=== PATIENT | male | born 1990 | race Caucasian/White ===

== ENCOUNTER 2018-06-24 00:13 | Emergency (ER) | payer OTHER ==
--- NOTE | 2018-06-24 00:24 | EDPHY ---
H & P Stated Complaint: severe pain/pressure behind L eye, DIETZ, SOB (out of albuterol) Time Seen by Provider: 06/24/18 00:21 HPI/ROS: HPI: This is a 28-year-old male who presents with Chief Complaint: severe pain/pressure behind L eye, DIETZ, SOB (out of albuterol) Location: Left oriental orthodox, left eye Quality: Pain Duration: 2-3 hours Signs and Symptoms: no fever, + nausea, no vomiting, no photophobia, no noise sensitivity, no neck stiffness, no ear pain, no tinnitus, no nasal congestion, no sinus pressure, no weakness, no radiation, no aura, no rash, no vision changes, no diplopia, no vision loss, no seizure activity Timing: Acute, constant Severity: 01/12 Context: Patient has a history of asthma, migraine headaches, presents with sudden onset 2-3 hours prior to arrival of left oriental orthodox and behind left eye 01/12 , severe, nonradiating pain. Patient reports that this is his worse headache of his life. He was sitting on the floor watching TV when the pain started to developed. He reports that the pain is so severe that he feels nauseous. Denies any vision changes, fever, vomiting. Reports this is not feel like a typical headache for him. Has yearly eye exams and does not wear corrective lenses/context. Denies any upper respiratory symptoms, sinus congestion, rhinorrhea. No recent trauma or injury. Modifying Factors: Took Aleve without pain relief Comment: ROS: A comprehensive 10 system review of systems is otherwise negative aside from elements mentioned in the history of present illness. MEDICAL/SURGICAL/SOCIAL HISTORY: Medical history: Asthma Surgical history: Denies Social history: Former smoker. Family history noncontributory. CONSTITUTIONAL: Moderate distress, adult physically fit white male, awake and alert, no obvious distress HEENT: Atraumatic and normocephalic, PERRL, EOMI. Nares patent; no rhinorrhea; no nasal mucosal edema. Tympanic membranes clear. Oropharynx clear, no exudate and moist pink mucosa. No temporal area pain with palpation. Airway patent. No lymphadenopathy. No meningismus. Cardiovascular: Normal S1/S2, regular rate, regular rhythm, without murmur rub or gallop. PULMONARY/CHEST: Symmetrical and nontender. Clear to auscultation bilaterally. Good air movement. No accessory muscle usage. ABDOMEN: Soft, nondistended, nontender, no rebound, no guarding, no peritoneal signs, no masses or organomegaly. No CVAT. EXTREMITIES: 2/2 pulses, strength 5/5, no deformities, no clubbing, no cyanosis or edema. NEUROLOGICAL: no focal neuro deficits. GCS 15. Cranial nerves 2-12 grossly intact. SKIN: Warm and dry, no erythema. no rash. Good capillary refill. Source: Patient Exam Limitations: No limitations - Personal History Current Tetanus/Diphtheria Vaccine: Yes Current Tetanus Diphtheria and Acellular Pertussis (TDAP): Yes - Medical/Surgical History Hx Asthma: Yes Hx Chronic Respiratory Disease: No Hx Diabetes: No Hx Cardiac Disease: No Hx Renal Disease: No Hx Cirrhosis: No Hx Alcoholism: No Hx HIV/AIDS: No Hx Splenectomy or Spleen Trauma: No Other PMH: asthma - Social History Smoking Status: Former smoker Constitutional: Initial Vital Signs Temperature (C) 36.5 C 06/24/18 00:16 Heart Rate 70 06/24/18 00:16 Respiratory Rate 20 06/24/18 00:16 Blood Pressure 146/89 H 06/24/18 00:16 O2 Sat (%) 95 06/24/18 00:16 O2 Delivery Mode Room Air Allergies/Adverse Reactions: No Known Allergies Allergy (Unverified 06/24/18 00:15) Home Medications: Medication Instructions Recorded Albuterol Sulfate [Proair Hfa] 1 - 2 puffs IH Q4 PRN #1 hfa.aer.ad 06/24/18 Albuterol [Proventil Inhaler HFA 06/24/18 (*)] Amoxicillin/Clavulanate Pot 875 mg PO BID #14 tab 06/24/18 [Augmentin 875 MG TAB (*)] Fluticasone Nasal [Flonase Nasal 1 sprays NASAL DAILY #1 mdi 06/24/18 [place] (RX)] Medical Decision Making - Diagnostics Imaging Results: Imaging Impressions Head CT 06/24/18 00:25 Impression: 1. No significant intracranial abnormality seen. 2. Nonspecific mild maxillary and ethmoid sinus disease. If symptoms worsen, additional imaging may be necessary. Preliminary report given to Emergency Department physician, Aida COOPER at 0057 hour, 06/24/2018. Final report concurs with initial preliminary interpretation. DR1 ED Course/Re-evaluation: Vital signs reviewed and show mildly elevated blood pressure. Head CT scan ordered as "worst headache of my life." IV access, laboratory studies obtained Given 1 L normal saline, IV Decadron 10 mg, IV Reglan 10 mg, and IV Benadryl 25 mg 0100: Reassessed patient who reports 75% improvement in pain and was sleeping soundly. 0102: Head CT scan overnight read shows no evidence of acute intracranial process, no hemorrhage, ventricular system is not dilated, no masses, moderate sinus mucosal thickening noted. 0108: BUN 33, creatinine 1.1 Suspect this is sinus disease versus ocular migraine. Given a prescription for Augmentin, Flonase and albuterol per patient request as out of his albuterol inhaler. Phenergan prepack given. This patient was seen under the supervision of my secondary supervising physician. I evaluated care for this patient with attending. Differential Diagnosis: Headache including but not limited to subarachnoid hemorrhage, migraine headache , tension headache and infectious causes such as meningitis, pharyngitis and sinusitis. - Data Points Laboratory Results: Laboratory Results 06/24/18 00:31 06/24/18 00:35 Medications Given: Discontinued Medications Amoxicillin/Clavulanate Potassium (Augmentin 875mg) 875 mg PO EDNOW ONE PRN Reason: Protocol Stop: 06/24/18 01:07 Last Admin: 06/24/18 01:13 Dose: 875 mg Dexamethasone (Decadron Injection) 10 mg IVP EDNOW ONE Stop: 06/24/18 00:26 Last Admin: 06/24/18 00:32 Dose: 10 mg Diphenhydramine HCl (Benadryl Injection) 25 mg IVP EDNOW ONE Stop: 06/24/18 00:26 Last Admin: 06/24/18 00:32 Dose: 25 mg Sodium Chloride (Ns) 1,000 mls @ 0 mls/hr IV ONCE ONE; Wide Open PRN Reason: Protocol Stop: 06/24/18 00:26 Last Admin: 06/24/18 00:33 Dose: 1,000 mls Metoclopramide HCl (Reglan Injection) 10 mg IVP EDNOW ONE Stop: 06/24/18 00:26 Last Admin: 06/24/18 00:33 Dose: 10 mg Promethazine HCl (Phenergan 25 Mg Prepack #4) 1 btl TAKEJINAE EDNOW ONE Stop: 06/24/18 01:07 Last Admin: 06/24/18 01:13 Dose: 1 btl Departure - Departure Disposition: Home, Routine, Self-Care Clinical Impression: Ocular migraine, Sinus disease Condition: Good Instructions: Promethazine (Into the rectum), Sinusitis (ED), Ocular Migraine ( ED) Additional Instructions: Consume a minimum of 8-10 glasses of water or electrolyte fluid replacement drinks that include Gatorade, Powerade, Pedialyte. Take antibiotic as indicated. Use [id number] Flonase daily. Take Phenergan every 6 hr as needed for nausea, vomiting Take Tylenol 650 mg every 4 hours and/or Ibuprofen 600 mg every 8 hours with food as needed for pain. Referrals: [facility],. [Clinic] - As per Instructions Prescriptions: Albuterol Sulfate [Proair Hfa] 1 - 2 puffs IH Q4 PRN #1 hfa.aer.ad PRN Reason: Short Of Breath/Dyspnea Amoxicillin/Clavulanate Pot [Augmentin 875 MG TAB (*)] 875 mg PO BID #14 tab Fluticasone Nasal [Flonase Nasal [place] (RX)] 1 sprays NASAL DAILY #1 mdi
[2018-06-24] MEDS ORDERED: DEXAMETHASONE 10 MG/ML VIAL IVP ONE (00:25)
[2018-06-24] MEDS ORDERED: METOCLOPRAMIDE 10 MG/2 ML VIAL IVP ONE (00:25)
[2018-06-24] MEDS ORDERED: NS 1,000 ML IV ONE (00:25)
[2018-06-24] MEDS ORDERED: AMOXICILLIN/CLAVULANATE POT 875/125 MG TAB PO ONE (01:06)
[2018-06-24] MEDS ORDERED: PROMETHAZINE 25 MG PREPACK #4 BTL TAKEHOME ONE (01:06)
[2018-06-24 01:10] LABS: PLATELET COUNT 211 10^3/uL (150-400)
[2018-06-24 01:21] VITALS: BP 133/74
== END 2018-06-24 01:18 | disposition home or self-care (01) ==
DX: G43.909 Migraine, unspecified, not intractable, without status migrainosus (principal); J32.9 Chronic sinusitis, unspecified; E86.9 Volume depletion, unspecified; Z87.891 Personal history of nicotine dependence
CPT/HCPCS: 96374; J1100; J1200; J2765